=== PATIENT | female | born 1975 | race Caucasian/White ===

== ENCOUNTER 2017-02-19 12:56 | Emergency (ER) | payer OTHER ==
--- NOTE | ~2017-02-19 | ER ---
[facility]GE[facility] 41 [facility] [address] ROOM: [place] [address] LOCATION: [facility] ADMIT DATE: 02/19/2017 ER/Outpatient Report DISCHARGE DATE: 02/19/2017 FAMILY PHYSICIAN: PHYSICIAN, NO ATTENDING PHYSICIAN: Deni Negron TIME OF ARRIVAL: 1256. TIME OF EVALUATION: 1307. CHIEF COMPLAINT: Something in left eye. HISTORY OF PRESENT ILLNESS: The patient is a 41-year-old female, who presents to the emergency department today with a chief complaint of some pain in her left eye. She reports that it occurred this morning while she was out in the garden. She had some eye discomfort. She does have some photophobia. She does wear contact lenses. She currently as a glasses on. She denies any blurred vision or decreased vision. No edema. No pain. PAST MEDICAL HISTORY: None. PAST SURGICAL HISTORY: Left arm, three . SOCIAL HISTORY: The patient denies any tobacco, alcohol, or illicit drug use. ALLERGIES: NO KNOWN DRUG ALLERGIES. MEDICATIONS: None. PRIMARY CARE DOCTOR: None. OPHTHALMOLOGY: [facility]. REVIEW OF SYSTEMS: [facility]GE[facility] 41 Y [address] ROOM: [place] [address] LOCATION: [facility] ADMIT DATE: 02/19/2017 ER/Outpatient Report DISCHARGE DATE: 02/19/2017 FAMILY PHYSICIAN: PHYSICIAN, NO ATTENDING PHYSICIAN: Deni Negron All systems are reviewed by myself and negative with the exception of those discussed in HPI and past medical history. PHYSICAL EXAMINATION: VITAL SIGNS: Weight 63.7 kg. Blood pressure 105/82, pulse 72, respiratory rate 18, temperature 97.5, oxygen saturation 97% on room air. GENERAL: The patient is a 41-year-old female who appears stated age, in no acute distress. HEENT: Head: Normocephalic, atraumatic. Pupils are equal, round, and reactive to light and accommodation. Extraocular movements are intact. Nares are patent bilaterally. Visual acuity corrected with glasses, right 20/25, left 20/25 both 20/25. NECK: Supple. There is no nuchal rigidity. CARDIOVASCULAR: Regular rate and rhythm. No murmurs, rubs, or gallops. LUNGS: Clear to auscultation bilaterally. No wheezes, rales, or rhonchi. ABDOMEN: Soft, nontender, and nondistended. No rebound, rigidity, or guarding. MUSCULOSKELETAL: The patient moves all 4 extremities. SKIN: Warm and dry. LAB AND X-RAYS: Slit-lamp exam is performed by myself. There is proparacaine is instilled, fluorescein was also used to dilate the eye. There is a corneal abrasion noted to 5 o'clock position. There is no evidence of foreign body. The eyelids are everted and there is no evidence of foreign body underneath the eyelids. There is no Corbin sign. There is no cell and flare noted. IMPRESSION: 1. Corneal abrasion in a contact lens wearer. 2. Initial visit. EMERGENCY DEPARTMENT COURSE: The patient was brought back to the examination room. She was seen and evaluated by myself. Slit-lamp exam was performed as described above. I have discussed the results with the patient. She does report that she has some tobramycin at home. I have recommended she uses these eye drops; two drops of 0.3% solution q.6 hours for 5 days. I have discussed following up with her eye doctor in 2-3 days for re-evaluation. I have discussed return care instructions including worsening symptoms or any other concerns to return to the emergency department as soon as possible. The patient is agreeable without further questions at the time of disposition. The patient discharged home in good condition. PATIENT'S NAME: LIS MEHTA [facility] AGE: 41 Y [address] ROOM: [place], [place] [address] LOCATION: ED ADMIT DATE: 02/19/2017 ER/Outpatient Report DISCHARGE DATE: 02/19/2017 FAMILY PHYSICIAN: PHYSICIAN, NO ATTENDING PHYSICIAN: Deni Negron DO AKILA HORNE/naomi /[id number] d: [birth year] t: 03/02/17 0639, OUTPATIENT REPORT
== END 2017-02-19 13:24 | disposition disaster alternative care site (69) ==
LOC: GMED 12:56
DX: H18.822 Corneal disorder due to contact lens, left eye (principal)